=== PATIENT | female | born 1975 | race African-American/Black ===

== ENCOUNTER 2016-10-10 09:01 | Observation (INO) | payer OTHER ==
[~2016-10-10] VITALS: Ht 152.4 cm; Wt 68.0 kg
[~2016-10-10 09:01] MED LIST: ORTHO TRICYCLIN; PROM1SUP12 PR
[2016-10-10 09:04] VITALS: BP 142/90; PULSE 64; RESP 20; TEMP 97.9; O2SAT 100
[2016-10-10] MEDS ORDERED: SODIUM CHLORIDE 0.9% FLUSH 10 ML FLUSH IVF PRN (09:45)
[2016-10-10] MEDS ORDERED: ASPIRIN 81 MG CHEW TAB PO ONE (09:45)
[2016-10-10 09:47] VITALS: BP_SYST 127; BP_SYST 130; BP_DIAS 84; BP_DIAS 86; PULSE 64; RESP 22; O2SAT 99
--- NOTE | 2016-10-10 10:05 | PD ---
HPI Chief Complaint: Chest Pain Time Seen by Provider: 09:43 Travel History International Travel<30 days: No Contact w/Intl Traveler<30days: No Traveled to known affect area: No History of Present Illness HPI This is a 41-year-old female with a reported history of -induced hypertension, tobacco abuse, who presents today with complaints of chest pain since 6 AM this morning. Patient reports it as left sided under her breast with radiation to her shoulder. She reports it as a 10 out of 10 on the pain scale. She denies any shortness of breath or diaphoresis or nausea. She has no family history of heart disease. She has no personal history of heart disease. The patient does report that she stop smoking 2 weeks ago. PFSH Past Medical History Hx Anticoagulant Therapy: No Cardiovascular Problems: No Chemotherapy: No Cerebrovascular Accident: No Diabetes: No Diminished Hearing: No Hypertension: Yes Respiratory: No ?: Not LMP: 2 WEEKS AGO Past Surgical History Surgical History: No Previous Surgery Hysterectomy: No Social History Alcohol Use: No Tobacco Use: Yes (Quit 2 weeks ago Prior use 02/21 PPD) Substance Use: No Allergies-Medications (Allergen,Severity, Reaction): Coded Allergies: No Known Allergies (Verified , 09/23/14) Reported Meds & Prescriptions Reported Meds & Active Scripts Active No Active Prescriptions or Reported Medications Review of Systems Except as stated in HPI: all other systems reviewed are Neg HENT: No: Headaches, Lightheadedness Cardiovascular: Positive: Chest Pain or Discomfort, No: Palpitations, Irregular Rhythm Respiratory: No: Cough, Shortness of Breath Gastrointestinal: No: Nausea, Vomiting, Abdominal Pain Genitourinary: No: Frequency, Dysuria Musculoskeletal: Positive: Pain (left shoulder), No: Weakness Neurologic: No: Weakness, Dizziness Physical Exam Narrative GENERAL: Well-nourished, well-developed patient, in no acute distress. SKIN: Focused skin assessment warm/dry. HEAD: Normocephalic last atraumatic. EYES: No scleral icterus. No injection or drainage. NECK: Supple, trachea midline. CARDIOVASCULAR: Regular rate and rhythm without murmurs, gallops, or rubs. RESPIRATORY: Breath sounds equal bilaterally. No accessory muscle use. GASTROINTESTINAL: Abdomen soft, non-tender, nondistended. MUSCULOSKELETAL: No cyanosis, or edema. NEUROLOGICAL: Awake and alert. Cranial nerves II through XII intact. Motor grossly within normal limits. Five out of 5 muscle strength in all muscle groups. Normal speech. Data Data Last Documented VS Vital Signs Date Time Temp Pulse Resp B/P (MAP) Pulse Ox O2 Delivery O2 Flow Rate FiO2 10/10/16 11:56 56 12 153/84 (107) 99 Room Air 10/10/16 09:04 97.9 Orders Orders Basic Metabolic Panel (Bmp) (10/10/16 09:43) Ckmb (Isoenzyme) Profile (10/10/16 09:43) Complete Blood Count With Diff (10/10/16 09:43) Magnesium (Mg) (10/10/16 09:43) Prothrombin Time / Inr (Pt) (10/10/16 09:43) Act Partial Throm Time (Ptt) (10/10/16 09:43) Troponin I (10/10/16 09:43) Chest, Single Ap (10/10/16 09:43) Ecg Monitoring (10/10/16 09:43) Bilateral Bp Monitoring (10/10/16 09:43) Iv Access Insert/Monitor (10/10/16 09:43) Oximetry (10/10/16 09:43) Oxygen Administration (10/10/16 09:43) Aspirin Chew (Aspirin Chew) (10/10/16 09:45) Sodium Chloride 0.9% Flush (Ns Flush) (10/10/16 09:45) CKMB (10/10/16 09:51) CKMB% (10/10/16 09:51) Electrocardiogram (10/10/16 ) Admit Order (Ed Use Only) (10/10/16 12:40) Diltiazem Inj (Cardizem Inj) (10/10/16 12:45) Diltiazem Inj (Cardizem Inj) (10/10/16 12:45) Labs Laboratory Tests Test 10/10/16 09:51 White Blood Count 6.5 TH/MM3 Red Blood Count 4.68 MIL/MM3 Hemoglobin 13.1 GM/DL Hematocrit 40.0 % Mean Corpuscular Volume 85.5 FL Mean Corpuscular Hemoglobin 28.1 PG Mean Corpuscular Hemoglobin Concent 32.8 % Red Cell Distribution Width 14.6 % Platelet Count 300 TH/MM3 Mean Platelet Volume 7.9 FL Neutrophils (%) (Auto) 55.4 % Lymphocytes (%) (Auto) 38.4 % Monocytes (%) (Auto) 5.4 % Eosinophils (%) (Auto) 0.4 % Basophils (%) (Auto) 0.4 % Neutrophils # (Auto) 3.6 TH/MM3 Lymphocytes # (Auto) 2.5 TH/MM3 Monocytes # (Auto) 0.4 TH/MM3 Eosinophils # (Auto) 0.0 TH/MM3 Basophils # (Auto) 0.0 TH/MM3 CBC Comment DIFF FINAL Differential Comment Prothrombin Time 10.0 SEC Prothromb Time International Ratio 0.9 RATIO Activated Partial Thromboplast Time 28.7 SEC Blood Urea Nitrogen 15 MG/DL Creatinine 0.93 MG/DL Random Glucose 96 MG/DL Calcium Level 8.8 MG/DL Magnesium Level 2.2 MG/DL Sodium Level 139 MEQ/L Potassium Level 3.8 MEQ/L Chloride Level 106 MEQ/L Carbon Dioxide Level 28.8 MEQ/L Anion Gap 4 MEQ/L Estimat Glomerular Filtration Rate 80 ML/MIN Total Creatine Kinase 134 U/L Creatine Kinase MB 0.9 NG/ML Troponin I LESS THAN 0.02 NG/ML MDM Medical Decision Making Medical Screen Exam Complete: Yes Emergency Medical Condition: Yes Differential Diagnosis ACS versus pulmonary embolus versus musculoskeletal pain Narrative Course 41-year-old female presents with atypical left sided chest pain. The patient's EKG and cardiac enzymes are within normal limits. The patient's had several episodes of this pain that usually resolves within 30 minutes or so. Today did not. Given this, and the fact that she has no primary care physician, she'll be placed the chest pain for rule out protocol. I discussed this in depth with her and she is amenable. Diagnosis Primary Impression: Atypical chest pain Additional Impression: Tobacco abuse Admitting Information Admitting Physician Requests: Observation Scripts No Active Prescriptions or Reported Meds Kali Hines MD Oct 10, 2016 10:05
[2016-10-10 10:13] LABS: AUTOMATED NEUTROPHIL # 3.6 TH/MM3 (1.8-7.7); BASOPHIL % 0.4 % (0.0-2.0); EOSINOPHIL % 0.4 % (0.0-4.0); HEMO FLAGS DIFF FINAL; LYMPH % 38.4 % (9.0-44.0); LYMPHOCYTE # 2.5 TH/MM3 (1.0-4.8); MEAN CELL VOLUME 85.5 FL (80.0-100.0); MEAN CORPUSCULAR HEMOGLOBIN 28.1 PG (27.0-34.0); MEAN CORPUSCULAR HGB CONC 32.8 % (32.0-36.0); MONO % 5.4 % (0.0-8.0); NEUT % 55.4 % (16.0-70.0); PLATELET COUNT 300 TH/MM3 (150-450); RED BLOOD COUNT 4.68 MIL/MM3 (4.00-5.30); RED CELL DISTRIBUTION WIDTH 14.6 % (11.6-17.2); WHITE BLOOD COUNT 6.5 TH/MM3 (4.0-11.0)
[2016-10-10 10:20] LABS: APTT (PATIENT) 28.7 SEC (24.3-30.1); INTERNATIONAL NORMALIZED RATIO 0.9 RATIO
--- NOTE | 2016-10-10 10:22 | RADRPT ---
EXAM DATE/TIME: 10/10/2016 09:58 [facility] COMPARISON: No previous studies available for comparison. INDICATIONS : Chest pain. MEDICAL HISTORY : Hypertension. SURGICAL HISTORY : None. ENCOUNTER: Initial ACUITY: 1 day PAIN SCORE: 10/10 LOCATION: Left lower chest FINDINGS: A single view of the chest demonstrates the lungs to be symmetrically aerated without evidence of mas s, infiltrate or effusion. The cardiomediastinal contours are unremarkable. Osseous structures are intact. Scoliotic changes. CONCLUSION: No acute disease. Brandon Aguila MD on October 10, 2016 at 10:20 Board Certified Radiologist. This report was verified electronically.
[2016-10-10 10:53] LABS: ANION GAP 4 MEQ/L (5-15); BICARBONATE 28.8 MEQ/L (21.0-32.0); BLOOD UREA NITROGEN 15 MG/DL (7-18); CHLORIDE 106 MEQ/L (98-107); GLOMERULAR FILTRATION RATE 80 ML/MIN (>89); MAGNESIUM 2.2 MG/DL (1.5-2.5); POTASSIUM 3.8 MEQ/L (3.5-5.1); SODIUM (NA) 139 MEQ/L (136-145)
[2016-10-10 11:01] LABS: CREATINE KINASE 134 U/L (26-192)
[2016-10-10 11:13] LABS: CKMB 0.9 NG/ML (0.5-3.6)
[2016-10-10 11:56] VITALS: BP 153/84; PULSE 56; RESP 12; O2SAT 99
--- NOTE | 2016-10-10 12:06 | EKG ---
Date Performed: 10/10/2016 Time Performed: 09:28:30 PTAGE: 41 years EKG: Sinus rhythm NORMAL ECG NO PREVIOUS TRACING DOCTOR: Judah Villanueva Interpretating Date/Time 10/10/2016 12:04:32
[2016-10-10] MEDS ORDERED: DILTIAZEM HCL 25 MG/5 ML VIAL IV PUSH ONE (12:45)
[2016-10-10] MEDS ORDERED: DILTIAZEM INJ 125 MG in SODIUM CHLORIDE 0.9% INJ 100 ML IV PRN (12:45)
[2016-10-10] MEDS ORDERED: NITROGLYCERIN 0.4 MG SL 25 TABS/BTL SL PRN (15:15)
[2016-10-10] MEDS ORDERED: ACETAMINOPHEN 500 MG CPLT PO PRN (15:15)
[2016-10-10] MEDS ORDERED: ONDANSETRON HCL 4 MG/2 ML VIAL IV PRN (15:15)
--- NOTE | 2016-10-10 15:33 | HHI.HP ---
HPI Primary Care Physician No Primary Care Physician Chief Complaint Chest discomfort History of Present Illness Ms. Khan is a 41-year-old female patient with a known medical history of tobacco abuse, quit 2 weeks ago and hypertension who presented to the ED with complaints of chest pain. Patient states that she woke up around 0600 this morning with complaints of chest pain located under her left breast, rated a 10/ 10 on pain scale, radiates to the left neck. Does state that changing position aggravates the pain. Denies any relieving factors. Pain is not reproducible. Denies any associated nausea, vomiting or shortness of breath. Does admit to associated diaphoresis. Patient states that she has had roughly 4 bouts of this chest pain in the last 5 months and usually when the pain presents it will subside with rest after 30 minutes. She states this time the pain just continued and would not go away. Review of Systems Cardiovascular: COMPLAINS OF: See HPI, Chest pain diaphoresis Past Family Social History Allergies: Coded Allergies: No Known Allergies (Verified , 09/23/14) Past Medical History induced hypertension, now controlled. History of tobacco use, quit 2 weeks ago. Past Surgical History Denies any history of surgery. Reported Medications Reported Meds & Active Scripts Active No Active Prescriptions or Reported Medications Active Ordered Medications Current Medications Medications (Trade) Dose Ordered Sig/Yodit Route Start Time Stop Time Status Last Admin (NS Flush) 2 ml UNSCH PRN IVF 10/10/16 09:45 10/10/16 09:57 (NS Flush) 2 ml BID IV FLUSH 10/10/16 21:00 UNV (Tylenol) 500 mg Q4H PRN PO 10/10/16 15:15 UNV (Zofran Inj) 4 mg Q6H PRN IV 10/10/16 15:15 UNV (Nitrostat Sl) 0.4 mg Q5M PRN SL 10/10/16 15:15 UNV (Aspirin) 325 mg DAILY PO 10/11/16 09:00 UNV Family History Maternal medical history significant for [place] at the age of 6767 years old. Social History Patient quit smoking cigarettes 2 weeks ago, admits to a smoking history of 1/2 ppd for 20 years. Denies any alcohol use. Denies any illicit drug use. Physical Exam Vital Signs Vital Signs Date Time Temp Pulse Resp B/P (MAP) Pulse Ox O2 Delivery O2 Flow Rate FiO2 10/10/16 11:56 56 12 153/84 (107) 99 Room Air 10/10/16 09:47 64 22 127/86 (100) 99 Room Air 130/84 (99) 10/10/16 09:39 22 10/10/16 09:04 97.9 64 20 142/90 (107) 100 Room Air Physical Exam GENERAL: Well--developed, well-nourished female patient lying in bed comfortably in nad. SKIN: Warm and dry. No rash. HEAD: Atraumatic. Normocephalic. EYES: Pupils equal and round. No scleral icterus. No injection or drainage. ENT: No nasal bleeding or discharge. Mucous membranes pink and moist. NECK: Trachea midline. No JVD. CARDIOVASCULAR: Regular rate and rhythm. S1 and S2 present. No murmur appreciated. No rubs, gallops. RESPIRATORY: No accessory muscle use. Clear to auscultation. Breath sounds equal bilaterally. GASTROINTESTINAL: Abdomen soft, non-tender, nondistended. MUSCULOSKELETAL: Extremities without clubbing, cyanosis, or edema. No obvious deformities. NEUROLOGICAL: Awake and alert. No obvious cranial nerve deficits. Motor grossly within normal limits. Five out of 5 muscle strength in the arms and legs. Normal speech. PSYCHIATRIC: Appropriate mood and affect; insight and judgment normal. Laboratory Laboratory Tests Test 10/10/16 09:51 White Blood Count 6.5 Red Blood Count 4.68 Hemoglobin 13.1 Hematocrit 40.0 Mean Corpuscular Volume 85.5 Mean Corpuscular Hemoglobin 28.1 Mean Corpuscular Hemoglobin Concent 32.8 Red Cell Distribution Width 14.6 Platelet Count 300 Mean Platelet Volume 7.9 Neutrophils (%) (Auto) 55.4 Lymphocytes (%) (Auto) 38.4 Monocytes (%) (Auto) 5.4 Eosinophils (%) (Auto) 0.4 Basophils (%) (Auto) 0.4 Neutrophils # (Auto) 3.6 Lymphocytes # (Auto) 2.5 Monocytes # (Auto) 0.4 Eosinophils # (Auto) 0.0 Basophils # (Auto) 0.0 CBC Comment DIFF FINAL Differential Comment Prothrombin Time 10.0 Prothromb Time International Ratio 0.9 Activated Partial Thromboplast Time 28.7 Blood Urea Nitrogen 15 Creatinine 0.93 Random Glucose 96 Calcium Level 8.8 Magnesium Level 2.2 Sodium Level 139 Potassium Level 3.8 Chloride Level 106 Carbon Dioxide Level 28.8 Anion Gap 4 Estimat Glomerular Filtration Rate 80 Total Creatine Kinase 134 Creatine Kinase MB 0.9 Troponin I LESS THAN 0.02 Result Diagram: 10/10/1695010/10/1651 [facility] Risk Assessment: No/Low Risk (score <= 1) [facility] Model Point Value = 1 Point Value = 2 Point Value = 3 Point Value = 5 Age 41-60 Minor surgery BMI > 25 kg/m2 Swollen legs Varicose veins or History of unexplained or recurrent spontaneous Oral contraceptives or hormone replacement Sepsis (< 1 month) Serious lung disease, including pneumonia (< 1 month) Abnormal pulmonary function Acute myocardial infarction Congestive heart failure (< 1 month) History of inflammatory bowel disease Medical patient at bed rest Age 61-74 Arthroscopic surgery Major open surgery (> 45 min) Laparoscopic surgery (> 45 min) Malignancy Confined to bed (> 72 hours) Immobilizing plaster cast Central venous access Age >= 75 History of VTE Family history of VTE Factor V Leiden Prothrombin [id number] Lupus anticoagulant Anticardiolipin antibodies Elevated serum homocysteine Heparin-induced thrombocytopenia Other congenital or acquired thrombophilia Stroke (< 1 month) Elective arthroplasty Hip, pelvis, or leg fracture Acute spinal cord injury (< 1 month) Prophylaxis Regimen Total Risk Factor Score Risk Level Prophylaxis Regimen 0-1 Low Early ambulation 2 Moderate Order ONE of the following: *Sequential Compression Device (SCD) *Heparin 5000 units SQ BID 3-4 Higher Order ONE of the following medications: *Heparin 5000 units SQ TID *Enoxaparin/Lovenox 40 mg SQ daily (WT < 150 kg, CrCl > 30 mL/min) *Enoxaparin/Lovenox 30 mg SQ daily (WT < 150 kg, CrCl > 10-29 mL/min) *Enoxaparin/Lovenox 30 mg SQ BID (WT < 150 kg, CrCl > 30 mL/min) AND/OR *Sequential Compression Device (SCD) 5 or more Highest Order ONE of the following medications: *Heparin 5000 units SQ TID (Preferred with Epidurals) *Enoxaparin/Lovenox 40 mg SQ daily (WT < 150 kg, CrCl > 30 mL/min) *Enoxaparin/Lovenox 30 mg SQ daily (WT < 150 kg, CrCl > 10-29 mL/min) *Enoxaparin/Lovenox 30 mg SQ BID (WT < 150 kg, CrCl > 30 mL/min) AND *Sequential Compression Device (SCD) Assessment and Plan Assessment and Plan #1 Atypical chest pain: Admitted to the chest pain center. Serial EKGs and serial troponins ordered for ruling out purposes. Patient seen by Dr. Ngo in the chest pain center. An exercise stress test will be performed to rule out any possibility of ischemia. If no signs of ischemia patient will be discharged home and encouraged to follow up with PCP in the outpatient setting. Patient is stable at this time and agreeable to the plan. Eve Dior Oct 10, 2016 15:33
--- NOTE | 2016-10-10 16:32 | HHI.DCPOC ---
Discharge Care Plan Diagnosis: (1) Atypical chest pain (2) Musculoskeletal chest pain Goals to Promote Your Health * To prevent worsening of your condition and complications * To maintain your health at the optimal level Directions to Meet Your Goals Take your medications as prescribed Follow your dietary instruction Follow activity as directed Keep your appointments as scheduled Take your immunizations and boosters as scheduled If your symptoms worsen call your PCP, if no PCP go to Urgent Care Center or Emergency Room Smoking is Dangerous to Your Health. Avoid second hand smoke Call the 24-hour hour crisis hotline for domestic abuse at Eve Dior Oct 10, 2016 16:32
[2016-10-10 16:45] VITALS: BP 110/81; PULSE 69; RESP 16; TEMP 98; O2SAT 99
[2016-10-10] MEDS ORDERED: SODIUM CHLORIDE 0.9% FLUSH 10 ML FLUSH IV FLUSH SCH (21:00)
[2016-10-11] MEDS ORDERED: ASPIRIN 325 MG TAB PO SCH (09:00)
--- NOTE | 2016-10-11 16:37 | TR ---
Date Performed: 10/10/2016 Time Performed: 16:15:15 DOCTOR: Nicole Matamoros DRUG LIST: CLINICAL HISTORY: REASON FOR TEST: ATYPICAL CHEST PAIN REASON FOR ENDING: OBSERVATION: CONCLUSION: Doc protocol completed test stopped secondary to target heart rate reached seconda ry to leg fatigue. No reproducible chest discomfort. No ST segment changes to indicate ischemia. Freq uent PACs and PVCs present throughout test. Great exercise tolerance. Recovery wuick and unremarkable . Maximum CI=591 Target SJ=130 % Target HR Achieved=98.0% Maximum UQ=259/94 Total Exercise Time=8:01 COMMENTS:
== END 2016-10-10 18:11 | disposition home or self-care (01) ==
LOC: NEPE 09:01 → NEDA 12:47 → NEPFCDU 16:26
DX: R07.89 Other chest pain (principal); M54.2 Cervicalgia; R61 Generalized hyperhidrosis; M25.512 Pain in left shoulder; I10 Essential (primary) hypertension; Z87.891 Personal history of nicotine dependence
CPT/HCPCS: 71010; 80048; 82550; 82552; 83735; 84484; 85025; 85610; 85730; 93005; 93017; 99285; G0378